=== PATIENT | male | born 1965 | race Caucasian/White ===

== ENCOUNTER → 2021-10-15 | Outpatient (CLI) | payer OTHER ==
--- NOTE | 2021-10-15 20:41 | MR ---
EXAMINATION TYPE: MR brain wo/w con DATE OF EXAM: 10/15/2021 COMPARISON: NONE HISTORY: 56-year-old male Z85.818, Confusion, altered sense of smell and taste, hx of parotid gland c ancer TECHNIQUE: Multiplanar, multisequence images of the brain and brainstem were acquired before and aft er administration of 11 mL IV Gadavist. Diffusion weighted imaging is performed. FINDINGS: No evidence for acute infarction, hemorrhage, mass, mass effect, midline shift, herniation, effacemen t of basal cisterns, or extra-axial fluid collection. The ventricles and sulci are age-appropriate. Major intracranial flow voids are intact. T2/FLAIR weighted sequences show only minimal scattered foci of bright white matter change, particula rly in the subcortical right frontal lobe Midline structures demonstrate normal morphology. The craniocervical junction is normal. Post contrast images demonstrate no evidence of pathologic enhancement. Dural venous sinuses are pat ent. There appears to have been prior surgical removal of the left parotid gland on sagittal series and pa rtially visualized on axial series. Questionable small 7 mm lobulated enhancing lesion superficial lo be of the right parotid gland, postcontrast coronal image 18 and postcontrast sagittal image 144. Mild mucosal thickening ethmoid air cells and trace along the floors of the maxillary sinuses and als o within the frontal sinuses. Leftward nasal septal deviation. The left globe is elongated with focal protuberance temporal to the optic disc. Mastoid air cells well pneumatized. IMPRESSION: 1. No acute intracranial abnormality and no suspicious enhancing intracranial lesions. 2. Trace burden of chronic small vessel ischemic disease. 3. 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 Correlate for any potential clinical significanc e such as an axial high pathologic myopia. 4. Partially visualized previous resection left parotid gland. There is a questionable small 7 mm lob ulated enhancing lesion superficial lobe right parotid gland. Recommend 6-8 week follow-up contrast e nhanced CT soft tissue neck to assess for a parotid space lymph node versus early mass. 5. Moderate chronic ethmoid sinus disease. Trace within the frontal and maxillary sinuses.
== END | disposition home or self-care (01) ==
LOC: RADMRIMAIN 11:48
PROVIDERS: ATTEND Nurse Practitioner Family
DX: I67.82 Cerebral ischemia (principal); J32.2 Chronic ethmoidal sinusitis; Z85.818 Personal history of malignant neoplasm of other sites of lip, oral cavity, and pharynx
CPT/HCPCS: 70553; A9585

== ENCOUNTER → 2021-12-16 | Outpatient (CLI) | payer OTHER ==
--- NOTE | 2021-12-16 10:17 | CT ---
EXAMINATION TYPE: CT soft tissue neck w con DATE OF EXAM: 12/16/2021 COMPARISON: 10/20/2021 HISTORY: Neoplasm parotid gland. Abnormal bone anomaly affecting vessel in neck. CT DLP: 904.2 mGycm CONTRAST: CT scan of the neck is performed with IV Contrast, patient injected with 70 ML mL of Isovue 300. Contrast enhanced CT of the neck was performed from the skull base through the lung apices. AIRWAY: The supraglottic, glottic, and subglottic portions of the airway appear patent and free of mass. SALIVARY GLANDS: Left sided parotidectomy change. No evidence for residual or recurrent mass. Right p arotid gland is free of lung nodule or mass. Small lymph node adjacent to the right parotid gland see n previously demonstrates a fatty hilum and is within normal limits. THYROID GLAND: No nodules or masses seen. LYMPH NODES: No adenopathy seen greater than 1cm. LUNG APICES: No nodule or mass is seen. OTHER: Vascular structures are patent. Multilevel degenerative disc disease spondylosis. Central taya nosis suggested at C6-7. No abscess seen. IMPRESSION: 1. Stable appearance of the macula with left-sided parotidectomy change. No recurrent or residual mas s.
== END | disposition home or self-care (01) ==
LOC: RADCTMAIN 08:58
PROVIDERS: ATTEND Internal Medicine Hematology & Oncology
DX: C07 Malignant neoplasm of parotid gland (principal)
CPT/HCPCS: 70491; Q9967

== ENCOUNTER 2022-12-12 15:44 | Emergency (ER) | payer OTHER ==
[2022-12-12 16:17] VITALS: RESP 18
[2022-12-12 18:11] VITALS: BP 128/84; PULSE 75; TEMP 97.9
--- NOTE | 2022-12-12 18:43 | ED ---
General Adult HPI - General Chief complaint: Fever Stated complaint: Fever,bodyaches Time Seen by Provider: 12/12/22 17:48 Source: patient, RN notes reviewed Mode of arrival: ambulatory Limitations: no limitations - History of Present Illness Initial comments: Patient is a pleasant 57-year-old male presenting to the emergency department with concerns for fevers. Onset of symptoms was around 3 days ago. Symptoms seem to be worse at night. Patient has fevers and chills and myalgias. Temperature has been as high as 101. Patient has had some minimal sore throat. No cough or dyspnea. No abdominal pain. No back pain. Patient has had some headaches, most severe as 6/10. Patient has been taking Tylenol with some improvement. - Related Data Allergies Allergy/AdvReac Type Severity Reaction Status Date / Time Penicillins Allergy Anaphylaxis Verified 12/12/22 16:17 Review of Systems ROS Statement: Those systems with pertinent positive or pertinent negative responses have been documented in the HPI. ROS Other: All systems not noted in ROS Statement are negative. Constitutional: Reports: as per HPI, fever, chills Eyes: Denies: eye pain ENT: Reports: ear pain Respiratory: Denies: dyspnea Cardiovascular: Denies: chest pain Endocrine: Reports: fatigue Gastrointestinal: Denies: abdominal pain Genitourinary: Denies: dysuria Musculoskeletal: Denies: back pain Skin: Denies: rash Neurological: Reports: as per HPI, headache. 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 Absent: meningismus Respiratory exam: Present: normal lung sounds bilaterally Cardiovascular Exam: Present: regular rate, normal rhythm GI/Abdominal exam: Present: soft. Absent: tenderness Extremities exam: Present: normal inspection Neurological exam: Present: alert. Absent: motor sensory deficit Expanded Neurological exam: Present: protecting the airway Speech: Present: fluid speech Motor strength exam: RUE: 5, LUE: 5, RLE: 5, LLE: 5 Eye Response: (4) open spontaneously Motor Response: (6) obeys commands Verbal Response: (5) oriented Psychiatric exam: Present: normal affect, normal mood Skin exam: Present: normal color Course Vital Signs 12/12/22 12/12/22 16:13 18:07 Temperature 99.6 F 97.9 F Pulse Rate 87 75 Respiratory 18 18 Rate Blood Pressure 118/74 128/84 O2 Sat by Pulse 98 98 Oximetry Medical Decision Making - Medical Decision Making Was pt. sent in by a medical professional or institution (, PA, [employer]OR, urgent care, hospital, or snf...) When possible be specific @ -No Did you speak to anyone other than the patient for history (EMS, parent, family, police, friend...)? What history was obtained from this source @ -No Did you review nursing and triage notes (agree or disagree)? Why? @ -I reviewed and agree with nursing and triage notes Were old charts reviewed (outside hosp., previous admission, EMS record, old EK G, old radiological studies, urgent care reports/EKG's, snf records)? Report findings @ -No old charts were reviewed Differential Diagnosis (chest pain, altered mental status, abdominal pain women, abdominal pain men, vaginal bleeding, weakness, fever, dyspnea, syncope, headache, dizziness, GI bleed, back pain, seizure, CVA, palpatations, mental health, musculoskeletal)? @ -Differential Fever: Pneumonia, viral URI, endocarditis, myocarditis, pericarditis, otitis, sinusitis, peritonsillar Abscess, retropharyngeal Abscess, epiglottitis, peritonitis, appendicitis, Caty cystitis, diverticulitis, hepatitis, colitis, UTI, PID, TOA, pyelonephritis, prostatitis, epididymitis, meningitis, encephalitis, pulmonary embolism, CVA, thyroid storm, pancreatitis, adrenal crisis, cavernous sinus thrombosis, this is not meant to be an all-inclusive list. EKG interpreted by me (3pts min.). @ -As above X-rays interpreted by me (1pt min.). @ -None done CT interpreted by me (1pt min.). @ -None done U/S interpreted by me (1pt. min.). @ -None done What testing was considered but not performed or refused? (CT, X-rays, U/S, labs)? Why? @ -Consider computed tomography scan of the brain and this was discussed with patient and he does not feel is necessary. It is felt unlikely to be beneficial as patient's headaches have been mild to moderate without any new neurological findings. No meningismus. What meds were considered but not given or refused? Why? @ -None Did you discuss the management of the patient with other professionals (professionals i.e. , PA, [employer], lab, RT, psych nurse, delinquency prevention social worker, medical transcription editor, teacher, chief green officer, case liner)? Give summary @ -No Was smoking cessation discussed for >3mins.? @ -No Was critical care preformed (if so, how long)? @ -No Were there social determinants of health that impacted care today? How? (Homelessness, low income, unemployed, alcoholism, drug addiction, transportation, low edu. Level, literacy, decrease access to med. care, nursing home, rehab)? @ -No Was there de-escalation of care discussed even if they declined (Discuss DNR or withdrawal of care, Hospice)? DNR status @ -No What co-morbidities impacted this encounter? (DM, HTN, Smoking, COPD, CAD, Cancer, CVA, ARF, Chemo, Hep., AIDS, mental health diagnosis, sleep apnea, morbid obesity)? @ -None Was patient admitted / discharged? Hospital course, mention meds given and route, prescriptions, significant lab abnormalities, going to OR and other pertinent info. @ -Patient presents with likely viral illness. Patient is updated regarding this as well as chest results. Patient is comfortable with discharge home. Undiagnosed new problem with uncertain prognosis? @ -No Drug Therapy requiring intensive monitoring for toxicity (Heparin, Nitro, Insulin, Cardizem)? @ -No Were any procedures done? @ -No Diagnosis/symptom? @ -Fever Acute, or Chronic, or Acute on Chronic? @ -Acute Uncomplicated (without systemic symptoms) or Complicated (systemic symptoms)? @ -default Side effects of treatment? @ -No Exacerbation, Progression, or Severe Exacerbation? @ -No Poses a threat to life or bodily function? How? (Chest pain, [place], [place], pneumonia, PE, COPD, DKA, ARF, appy, cholecystitis, CVA, Diverticulitis, Homicidal, Suicidal, threat to staff... and all critical care pts) @ -No - Lab Data Lab Results 12/12/22 Range/Units 16:18 Influenza Type A (PCR) Not Detected (Not Detectd) Influenza Type B (PCR) Not Detected (Not Detectd) RSV (PCR) Not Detected (Not Detectd) SARS-CoV-2 (PCR) Not Detected (Not Detectd) Disposition Clinical Impression: Fever Disposition: HOME SELF-CARE Condition: Stable Instructions (If sedation given, give patient instructions): Fever in Adults (ED), Viral Syndrome (ED) Additional Instructions: [id number] Tylenol or Motrin as needed. Please do follow-up with primary care physician in the next day or 2 for recheck. Return for increased fevers, headache, weakness, cough or shortness of breath, worsening symptoms or other concerns. Is patient prescribed a controlled substance at d/c from ED?: No Referrals: Dante Ambriz MD [STAFF PHYSICIAN] - 1-2 days Time of Disposition: 18:43
== END 2022-12-12 18:48 | disposition home or self-care (01) ==
LOC: EC 15:44
DX: R50.9 Fever, unspecified (principal); Z87.891 Personal history of nicotine dependence; Z88.0 Allergy status to penicillin; Z20.822 Contact with and (suspected) exposure to COVID-19
CPT/HCPCS: 87636; 99283